=== PATIENT | female | born 1960 | race Caucasian/White ===

== ENCOUNTER 2017-04-26 09:16 | Day surgery (SDC) | payer BC ==
[2017-04-25 11:04] VITALS: BMI 27.8
[~2017-04-26 09:16] MED LIST: LACTATED RINGERS 1,000 ML IV SCH; LIDOCAINE 1% 20 ML VIAL (10MG/ML) FOR IV START INTRADERMA PRN
[2017-04-26 10:16] VITALS: RESP 16; TEMP 98.2
[2017-04-26] MEDS ORDERED: PROPOFOL 10 MG/ML 20 ML VIAL IV ONE (10:24)
--- NOTE | 2017-04-26 10:45 | P.PCN ---
Date of Procedure: 04/26/17 Preoperative Diagnosis: Postoperative Diagnosis: Procedure(s) Performed: Implants: BRIEF HISTORY: Patient is a 56-year-old pleasant white female, scheduled for an elective colonoscopy as a part of screening for colorectal neoplasia. She has family history of colon cancer diagnosed in her first cousin at age 65. PROCEDURE PERFORMED: Colonoscopy. PREOPERATIVE DIAGNOSIS: Screening for colon cancer. IV sedation per Anesthesia. PROCEDURE: After informed consent was obtained, the patient, was brought into the endoscopy unit. IV sedation was administered by Anesthesia under continuous monitoring. Digital rectal examination was normal. Initially the Olympus CF- 160 flexible video colonoscope was then inserted in the rectum, gradually advanced into the cecum without any difficulty. Careful examination was performed as the scope was gradually being withdrawn. Ileocecal valve and the appendiceal orifice were visualized and appeared normal. Prep was excellent. Mucosa of the cecum, ascending colon, transverse colon, descending colon, sigmoid colon, and rectum appeared normal. Retroflexion was performed in the rectum and no lesions were seen. The patient tolerated the procedure well. IMPRESSION: Normal-appearing colon from rectum to cecum with no evidence of colorectal neoplasia. RECOMMENDATIONS: Findings of this examination were discussed with the patient as well as her family. She was advised to have a repeat screening colonoscopy in 5 years because of the family history of colon cancer. Indications for Procedure: Operative Findings: Description of Procedure:
[2017-04-26 11:07] VITALS: BP 133/76; PULSE 58
== END 2017-04-26 11:26 | disposition home or self-care (01) ==
LOC: ORWHC2ENDO 09:16
PROVIDERS: ATTEND Internal Medicine Gastroenterology
DX: Z12.11 Encounter for screening for malignant neoplasm of colon (principal); Z80.0 Family history of malignant neoplasm of digestive organs; K21.9 Gastro-esophageal reflux disease without esophagitis; E07.9 Disorder of thyroid, unspecified; Z79.899 Other long term (current) drug therapy; Z86.73 Personal history of transient ischemic attack (TIA), and cerebral infarction without residual deficits
CPT/HCPCS: J2704; G0105

== ENCOUNTER → 2017-06-18 | Outpatient (CLI) | payer BC ==
--- NOTE | 2017-06-19 06:19 | PN ---
PROGRESS NOTE FROM SLEEP CENTER This 56-year-old female patient diagnosed having a mild obstructive sleep apnea with an AHI of 8.2. Currently, the patient is on CPAP with a pressure of 7 cm of water. She is doing well while on treatment. Despite the mild nature of her obstructive sleep apnea, the patient is responding to her treatment. She is waking up much more alert and awake during the day. This weekend she is going to [place] and I advised her to take her machine with her. She is going to attend her sister's wedding. Her weight is stable. Her CPAP use for more than 4 hours is at 87%. The average CPAP use is 5 hour sand 19 minutes. Her AHI is less than 5 and no leaks around her nasal pillow which is an AirFit P10 extra small. BP 140/80, pulse 72, respirations 16, temperature 97.3 and saturation 98% on room air.Weight is 178. GENERAL APPEARANCE: Calm, comfortable. HEENT: Negative for JVD. There is no goiter or neck masses. LUNGS: Clear to auscultation. HEART: Sounds regular rate and rhythm. Normal S1, S2. ABDOMEN: Soft, nontender. No organomegaly. EXTREMITIES: No edema, no cyanosis or clubbing. IMPRESSION: 1. Obstructive sleep apnea, mild with an AHI of 8.2, currently on CPAP at a pressure of 7. 2. Hypersomnia, improved. 3. Periodic limb movements. 4. Snoring, recovered. 5. Bipolar disorder. 6. Hypothyroidism. 7. Stress urinary incontinence. 8. Gastroesophageal reflux disease. 9. Chronic fatigue and tiredness and sleepiness improved. PLAN: 1. Continue CPAP at the same level of pressure. 2. Encourage weight loss. 3. Recommend using CPAP every night. 4. See me back in a year's time, earlier if needed. She is quite compliant to her treatment for the time being. No other adjustments from my standpoint for today. SHEFALID
== END ==
LOC: SLEEP 16:27
PROVIDERS: ATTEND Internal Medicine Critical Care Medicine
DX: G47.33 Obstructive sleep apnea (adult) (pediatric) (principal); G47.10 Hypersomnia, unspecified; G47.61 Periodic limb movement disorder; E03.9 Hypothyroidism, unspecified; K21.9 Gastro-esophageal reflux disease without esophagitis; R53.82 Chronic fatigue, unspecified; N39.3 Stress incontinence (female) (male); F31.9 Bipolar disorder, unspecified

== ENCOUNTER → 2018-02-26 | Outpatient (CLI) | payer BC ==
[2018-02-26 11:55] LABS: HCT 39.4 % (34.0-46.0); HGB 13.1 gm/dL (11.4-16.0); MCH 30.7 pg (25.0-35.0); MCHC 33.2 g/dL (31.0-37.0); MCV 92.6 fL (80.0-100.0); Mean Platelet Volume 6.7; Platelet Count 303 k/uL (150-450); RBC 4.25 m/uL (3.80-5.40); RDW 12.1 % (11.5-15.5); WBC 5.6 k/uL (3.8-10.6)
[2018-02-26 12:06] LABS: Albumin 4.4 g/dL (3.5-5.0); Bilirubin, Delta 0.3 mg/dL (0.0-0.2); Total Bilirubin 0.3 mg/dL (0.2-1.3)
[2018-02-26 12:49] LABS: Basophils # (M) 0.11 k/uL (0-0.2); Eosinophils # (M) 0.17 k/uL (0-0.7); Lymphocytes # (M) 2.18 k/uL (1.0-4.8); Monocytes # (M) 0.22 k/uL (0-1.0); Neutrophils # (M) 2.91 k/uL (1.3-7.7); Neutrophils % (M) 52 %; Nucleated Red Blood Cells 0 /100 WBC (0-0); Total Cells Counted 100
[2018-02-26 12:50] LABS: Poikilocytosis (M) Present
[2018-02-26 18:43] LABS: Hemoglobin A1C 5.2 % (4.0-6.0)
== END | disposition home or self-care (01) ==
LOC: LABWHC1 11:20
DX: Z51.81 Encounter for therapeutic drug level monitoring (principal); Z79.899 Other long term (current) drug therapy
CPT/HCPCS: 36415; 80061; 80076; 82947; 83036; 84146; 84443; 85027

== ENCOUNTER → 2018-06-25 | Outpatient (CLI) | payer BC ==
--- NOTE | 2018-06-25 13:57 | MM ---
Reason for exam: screening (asymptomatic). Last mammogram was performed 4 years and 2 months ago. History: Family history of breast cancer in paternal cousin at age 60. Benign ultrasound-guided core biopsy of the right breast, December 02, 2003. Core biopsy of the right breast. Physical Findings: A clinical breast exam by your physician is recommended on an annual basis and results should be correlated with mammographic findings. MG 3D Screening Mammo W/Cad Bilateral CC and MLO view(s) were taken. Prior study comparison: April 19, 2014, bilateral MG screening mammo w CAD. April 08, 2013, bilateral digital screening mammo w/CAD. There are scattered fibroglandular densities. Previous mammotome biopsy in the right breast. There is no discrete abnormality. Benign appearing bilateral axillary lymph nodes redemonstrated. ASSESSMENT: Benign, BI-RAD 2 RECOMMENDATION: Routine screening mammogram of both breasts in 1 year.
--- NOTE | 2018-06-25 17:19 | BD ---
EXAMINATION TYPE: Axial Bone Density DATE OF EXAM: 06/25/2018 COMPARISON: NONE CLINICAL HISTORY: 57-year-old female screening for osteoporosis Height: 5'7 Weight: 181 FRAX RISK QUESTIONS: History of Fracture in Adulthood: y Secondary Osteoporosis: 3. Menopause before 45: y RISK FACTORS HISTORY OF: Diet low in dairy products/other sources of calcium: y Postmenopausal woman: y MEDICATIONS: Thyroid Medications: Which medication: Synthroid How Lon years Additional Medications: depression Additional History: EXAM MEASUREMENTS: Bone mineral densitometry was performed using the [employer] System. Bone mineral density as measured about the Lumbar spine is: ----- L1-L4(G/cm2): 1.077 T Score Values are as follows: ----- L2: -1.2 ----- L3: -0.6 ----- L4: -0.6 ----- L1-L4: -0.9 Bone mineral density about the R hip (g/cm2): 0.986 Bone mineral density about the L hip (g/cm2): 0.968 T Score values are as follows: -----R Neck: -0.4 -----L Neck: -0.5 -----R Total: 0.4 -----L Total: 0.4 IMPRESSION: Normal (Values between +1 and -1 indicate normal bone mass). Consider repeating this study in 5 year s or sooner if there is some new clinical indication. NOTE: T-SCORE=SD OF THE YOUNG ADULT MEAN.
== END | disposition home or self-care (01) ==
LOC: RADMAMWWP 07:19
PROVIDERS: ATTEND Family Medicine
DX: Z12.31 Encounter for screening mammogram for malignant neoplasm of breast (principal); Z13.820 Encounter for screening for osteoporosis
CPT/HCPCS: 77063; 77067; 77080

== ENCOUNTER → 2018-08-20 | Outpatient (CLI) | payer BC ==
[2018-08-20 10:36] LABS: Basophils % (A) 0 %; Eosinophils # (A) 0.1 k/uL (0-0.7); Eosinophils % (A) 2 %; HCT 38.9 % (34.0-46.0); HGB 12.9 gm/dL (11.4-16.0); Lymphocytes # (A) 1.2 k/uL (1.0-4.8); Lymphocytes % (A) 27 %; MCH 31.3 pg (25.0-35.0); MCHC 33.2 g/dL (31.0-37.0); MCV 94.1 fL (80.0-100.0); Mean Platelet Volume 6.5; Monocytes # (A) 0.3 k/uL (0-1.0); Monocytes % (A) 6 %; Neutrophils # (A) 2.7 k/uL (1.3-7.7); Neutrophils % (A) 62 %; Platelet Count 268 k/uL (150-450); RBC 4.14 m/uL (3.80-5.40); WBC 4.4 k/uL (3.8-10.6)
[2018-08-20 12:33] LABS: ALT 15 U/L (9-52); AST 19 U/L (14-36); Albumin 4.2 g/dL (3.5-5.0); Alkaline Phosphatase 62 U/L (38-126); Anion Gap 6 mmol/L; Bilirubin, Delta 0.3 mg/dL (0.0-0.2); Bilirubin,Unconjugated 0.1 mg/dL (0.0-1.1); Blood Urea Nitrogen 13 mg/dL (7-17); Calcium 9.7 mg/dL (8.4-10.2); Carbon Dioxide 30 mmol/L (22-30); Chloride 105 mmol/L (98-107); Cholesterol 194 mg/dL (<200); Glucose 85 mg/dL (74-99); HDL Cholesterol 66 mg/dL (40-60); LDL Cholesterol,Calculated 117 mg/dL (0-99); Potassium 4.4 mmol/L (3.5-5.1); Sodium 141 mmol/L (137-145); Total Bilirubin 0.4 mg/dL (0.2-1.3); Triglycerides 57 mg/dL (<150)
[2018-08-20 12:49] LABS: T4, Free (Free Thyroxine) 0.84 ng/dL (0.78-2.19)
[2018-08-20 19:11] LABS: Hemoglobin A1C 5.1 % (4.0-6.0)
== END | disposition home or self-care (01) ==
LOC: LABWHC1 09:20
DX: Z51.81 Encounter for therapeutic drug level monitoring (principal); Z79.899 Other long term (current) drug therapy
CPT/HCPCS: 36415; 80053; 80061; 82248; 83036; 84146; 84439; 84443; 84481; 85025

== ENCOUNTER → 2019-07-15 | Outpatient (CLI) | payer BC ==
--- NOTE | 2019-07-16 12:05 | MM ---
Reason for exam: screening (asymptomatic). Last mammogram was performed 1 year and 1 month ago. History: Family history of breast cancer in paternal cousin at age 60. Benign ultrasound-guided core biopsy of the right breast, December 02, 2003. Core biopsy of the right breast. Physical Findings: A clinical breast exam by your physician is recommended on an annual basis and results should be correlated with mammographic findings. MG 3D Screening Mammo W/Cad Bilateral CC and MLO view(s) were taken. Prior study comparison: June 25, 2018, bilateral MG 3d screening mammo w/cad. April 19, 2014, bilateral MG screening mammo w CAD. There are scattered fibroglandular densities. No suspicious abnormality. Right biopsy marker noted. No significant changes when compared with prior studies. ASSESSMENT: Negative, BI-RAD 1 RECOMMENDATION: Routine screening mammogram of both breasts in 1 year.
== END | disposition home or self-care (01) ==
LOC: RADMAMWWP 13:19
PROVIDERS: ATTEND Family Medicine
DX: Z12.31 Encounter for screening mammogram for malignant neoplasm of breast (principal)
CPT/HCPCS: 77063; 77067

== ENCOUNTER → 2019-11-09 | Outpatient (CLI) | payer BC ==
--- NOTE | 2019-11-09 16:10 | US ---
EXAMINATION TYPE: US venous doppler duplex LE BI DATE OF EXAM: 11/09/2019 2:54 PM COMPARISON: NONE CLINICAL HISTORY: 58-year-old female I83.93 ASYMPTOMATIC VARICOSE VEINS. Lump on and off for 6 months left leg SIDE PERFORMED: Bilateral TECHNIQUE: The lower extremity deep venous system is examined utilizing real time linear array sonog apolinar with graded compression, doppler sonography and color-flow sonography. FINDINGS: VESSELS IMAGED: External Iliac Vein (EIV) Common Femoral Vein Deep Femoral Vein Greater Saphenous Vein * Femoral Vein Popliteal Vein Small Saphenous Vein * Proximal Calf Veins (* superficial vessels) Right Leg: Negative for DVT Left Leg: Negative for DVT Napoles's cyst in left pop fossa measuring 5.4 x 3.0 x 6.4 cm IMPRESSION: 1. No evidence for DVT within the bilateral lower extremities imaged from the groin to the upper calf . 2. Moderate-sized 6.4 x 5.4 x 3.0 cm left-sided Napoles cyst.
== END | disposition home or self-care (01) ==
LOC: RADUSWWP 14:00
PROVIDERS: ATTEND Family Medicine
DX: M71.22 Synovial cyst of popliteal space [Baker], left knee (principal)
CPT/HCPCS: 93970

== ENCOUNTER → 2020-09-02 | Outpatient (CLI) | payer BC ==
--- NOTE | 2020-09-06 10:59 | MM ---
Reason for exam: screening (asymptomatic). Last mammogram was performed 1 year and 2 months ago. History: Family history of breast cancer in paternal cousin at age 60. Benign ultrasound-guided core biopsy of the right breast, December 02, 2003. Core biopsy of the right breast. Physical Findings: A clinical breast exam by your physician is recommended on an annual basis and results should be correlated with mammographic findings. MG 3D Screening Mammo W/Cad Bilateral CC and MLO view(s) were taken. Prior study comparison: July 15, 2019, bilateral MG 3d screening mammo w/cad. June 25, 2018, bilateral MG 3d screening mammo w/cad. There are scattered fibroglandular densities. Previous mammotome biopsy in the right breast. No significant changes when compared with prior studies. ASSESSMENT: Negative, BI-RAD 1 RECOMMENDATION: Routine screening mammogram of both breasts in 1 year.
== END | disposition home or self-care (01) ==
LOC: RADMAMWWP 09:35
PROVIDERS: ATTEND Family Medicine
DX: Z12.31 Encounter for screening mammogram for malignant neoplasm of breast (principal)
CPT/HCPCS: 77063; 77067

== ENCOUNTER → 2021-11-02 | Outpatient (CLI) | payer BC ==
--- NOTE | 2021-11-03 12:55 | MM ---
Reason for exam: screening (asymptomatic). Last mammogram was performed 1 year and 2 months ago. History: Family history of breast cancer in paternal cousin at age 60. Benign ultrasound-guided core biopsy of the right breast, December 02, 2003. Core biopsy of the right breast. Physical Findings: A clinical breast exam by your physician is recommended on an annual basis and results should be correlated with mammographic findings. MG 3D Screening Mammo W/Cad Bilateral CC and MLO view(s) were taken. Prior study comparison: September 02, 2020, bilateral MG 3d screening mammo w/cad. July 15, 2019, bilateral MG 3d screening mammo w/cad. There are scattered fibroglandular densities. Previous mammotome biopsy in the right breast. There is no discrete abnormality. ASSESSMENT: Benign, BI-RAD 2 RECOMMENDATION: Routine screening mammogram of both breasts in 1 year.
== END | disposition home or self-care (01) ==
LOC: RADMAMWWP 14:54
PROVIDERS: ATTEND Family Medicine
DX: Z12.31 Encounter for screening mammogram for malignant neoplasm of breast (principal)
CPT/HCPCS: 77063; 77067

== ENCOUNTER → 2022-02-28 | Outpatient (CLI) | payer BC ==
--- NOTE | 2022-02-28 17:07 | BD ---
EXAMINATION TYPE: Axial Bone Density DATE OF EXAM: 02/28/2022 COMPARISON: NONE CLINICAL HISTORY: 61 year old Female. ICD-10 CODE: M85.80 OTH DISRD OF BONE DENSITY AND STRUCTURE, UN Height: 67 Weight: 173.0 FRAX RISK QUESTIONS: Alcohol (3 or more units per day): no Family History (Parent hip fracture): no Glucocorticoids (More than 3mos): no (Ex: prednisone, prednisolone, methylprednisolone, dexamethasone, and hydrocortisone). History of Fracture in Adulthood: no Secondary Osteoporosis: 1. Type 1 Diabetes: no 2. Hyperthyroidism: no 3. Menopause before 45: yes 4. Malnutrition: no 5. Chronic liver disease: no Rheumatoid Arthritis: no Current Tobacco Use: no RISK FACTORS HISTORY OF: Surgery to Spine/Hip(right/left)/Wrist (right/left): no Family History of Osteoporosis: no Active: yes Diet low in dairy products/other sources of calcium: yes Postmenopausal woman: yes Lost more than 2 inches in height since high school: no Frequent falls: yes MEDICATIONS: Thyroid Medications: synthroid How Lon years Additional History: EXAM MEASUREMENTS: Bone mineral densitometry was performed using the [employer] System. Bone mineral density as measured about the Lumbar spine is: ----- L1-L4(G/cm2): 1.104 T Score Values are as follows: ----- L1: -1.3 ----- L2: -0.5 ----- L3: -0.6 ----- L4: -0.3 ----- L1-L4: -0.6 Bone mineral density has: increased 3.1 % since study of: 06.25.2018 Bone mineral density about the R hip (g/cm2): 0.981 Bone mineral density about the L hip (g/cm2): 0.921 T Score values are as follows: -----R Neck: -0.4 -----L Neck: -0.8 -----R Total: 0.3 -----L Total: 0.0 Bone mineral density has: decreased -3.3 % since study of: 06.25.2018 FRAX%s: The graph provided illustrates a 7.1% chance for a major osteoporotic fx and a 0.4% chance fo r the hips probability for fx in 10 years time. IMPRESSION: Normal (Values between +1 and -1 indicate normal bone mass). Consider repeating this study in 5 year s or sooner if there is some new clinical indication. NOTE: T-SCORE=SD OF THE YOUNG ADULT MEAN.
== END | disposition home or self-care (01) ==
LOC: RADBDWWP 07:22
PROVIDERS: ATTEND Family Medicine
DX: Z12.31 Encounter for screening mammogram for malignant neoplasm of breast (principal); M85.80 Other specified disorders of bone density and structure, unspecified site
CPT/HCPCS: 77080

== ENCOUNTER 2022-05-16 08:25 | Day surgery (SDC) | payer BC ==
[2022-05-14 13:04] VITALS: BMI 26.6
[~2022-05-16 08:25] MED LIST changes: +LIDOCAINE 1% (10MG/ML) FOR IV START INTRADERMA PRN; -LIDOCAINE 1% 20 ML VIAL (10MG/ML) FOR IV START INTRADERMA PRN
[2022-05-16 08:56] VITALS: TEMP 97.8
[2022-05-16] MEDS ORDERED: LIDOCAINE 2% INJ 20 MG/ML (2 ML VIAL) ONE (09:36)
[2022-05-16] MEDS ORDERED: PROPOFOL 10 MG/ML 20 ML VIAL IV ONE (09:36)
--- NOTE | 2022-05-16 10:00 | P.PCN ---
Date of Procedure: 05/16/22 Procedure(s) Performed: BRIEF HISTORY: Patient is a 61-year-old pleasant white female scheduled for an elective colonoscopy as a part of screening for colon cancer and family history of colon cancer. PROCEDURE PERFORMED: Colonoscopy. PREOPERATIVE DIAGNOSIS: Screening for colon cancer and family history of colon cancer IV sedation per Anesthesia. PROCEDURE: After informed consent was obtained, the patient, was brought into the endoscopy unit. IV sedation was administered by Anesthesia under continuous monitoring. Digital rectal examination was normal. Initially the Olympus CF-160 flexible video colonoscope was then inserted in the rectum, gradually advanced into the cecum without any difficulty. Careful examination was performed as the scope was gradually being withdrawn. Ileocecal valve and the appendiceal orifice were visualized and appeared normal. Prep was excellent. Mucosa of the cecum, ascending colon, transverse colon, descending colon, sigmoid colon, and rectum appeared normal. Scattered sigmoid diverticulosis. Retroflexion was performed in the rectum and no lesions were seen. The patient tolerated the procedure well. IMPRESSION: Normal-appearing colon from rectum to cecum with no evidence of colorectal neoplasia . Scattered sigmoid diverticulosis RECOMMENDATIONS: Findings of this examination were discussed with the patient as well as her family. She was advised to have a repeat screening colonoscopy in 5 years from now because of the family history of colon cancer.
[2022-05-16 10:05] VITALS: RESP 16
[2022-05-16 10:20] VITALS: BP 140/71; PULSE 61
== END 2022-05-16 10:34 | disposition home or self-care (01) ==
LOC: ORWHC2ENDO 08:25
PROVIDERS: ATTEND Internal Medicine Gastroenterology
DX: Z12.11 Encounter for screening for malignant neoplasm of colon (principal); K57.30 Diverticulosis of large intestine without perforation or abscess without bleeding; Z80.0 Family history of malignant neoplasm of digestive organs; E78.5 Hyperlipidemia, unspecified; E07.9 Disorder of thyroid, unspecified; F32.A Depression, unspecified; K21.9 Gastro-esophageal reflux disease without esophagitis; Z86.73 Personal history of transient ischemic attack (TIA), and cerebral infarction without residual deficits; Z79.899 Other long term (current) drug therapy; Z79.82 Long term (current) use of aspirin; Z79.890 Hormone replacement therapy
CPT/HCPCS: J2704; J2001; G0105; 45378

== ENCOUNTER → 2022-11-01 | Outpatient (CLI) | payer BC | END | disposition home or self-care (01) | LOC: RADMAMWWP 09:16 | PROVIDERS: ATTEND Family Medicine | DX: Z53.9 Procedure and treatment not carried out, unspecified reason (principal) ==

== ENCOUNTER → 2022-11-05 | Outpatient (CLI) | payer BC ==
--- NOTE | 2022-11-05 11:39 | MM ---
Reason for Exam: Screening (asymptomatic). Last screening mammogram was performed 12 month(s) ago. Patient History: Menarche at age 13. First Full-Term at age 22. Hysterectomy at age 36. Core Biopsy on the Right side. 12/02/2003, Benign Ultrasound-Guided Core Biopsy on the right side. Paternal cousin had breast cancer, age 60. Paternal cousin had ovarian cancer, age 65. Risk Values: Alicia 5 year model risk: 2.0%. NCI Lifetime model risk: 9.5%. Prior Study Comparison: 07/15/2019 Bilateral Screening Mammogram, [facility]. 09/02/2020 Bilateral Screening Mammogram, [facility]. 11/02/2021 Bilateral Screening Mammogram, [facility]. Tissue Density: There are scattered fibroglandular densities. Findings: Analyzed By CAD. Mammotome biopsy clip in the right breast is redemonstrated. Benign-appearing right axillary lymph nodes are seen. There is no suspicious new group of microcalcifications or new suspicious mass in either breast. Overall Assessment: Benign, BI-RAD 2 Management: Screening Mammogram of both breasts in 1 year. A clinical breast exam by your physician is recommended on an annual basis and results should be correlated with mammographic findings. Electronically signed and approved by: Gael Phillips M.D.
== END | disposition home or self-care (01) ==
LOC: RADMAMWWP 10:52
PROVIDERS: ATTEND Family Medicine
DX: Z12.31 Encounter for screening mammogram for malignant neoplasm of breast (principal); Z80.3 Family history of malignant neoplasm of breast; Z98.890 Other specified postprocedural states
CPT/HCPCS: 77063; 77067

== ENCOUNTER → 2023-10-16 | Outpatient (CLI) | payer BC ==
--- NOTE | 2023-10-16 18:55 | CT ---
EXAMINATION TYPE: CT chest w con CT DLP: 347.9 mGycm, Automated exposure control for dose reduction was used. DATE OF EXAM: 10/16/2023 6:46 PM COMPARISON: Chest radiograph 10/01/2023. CLINICAL INDICATION:Female, 62 years old with history of R05.3 CHRONIC COUGH; PHH, Cough x 1 month TECHNIQUE: Multiple axial images were obtained through the chest. Sagittal and coronal reformats were created for review. Contrast used:100 cc mL of Isovue 300 with IV Contrast (None if empty) Oral contrast used: (None if empty) FINDINGS: LUNGS/ PLEURA: No focal consolidation, pneumothorax or pleural effusion. AIRWAY: No bronchial wall thickening bronchial wall dilation. HEART: Size within normal limits. MEDIASTINUM: No gross evidence of adenopathy. VASCULATURE: No aortic aneurysm. MUSCULOSKELETAL: No acute osseous abnormalities, mild pectus excavatum. SOFT TISSUES/LYMPH NODES: Unremarkable. LOWER NECK: No significant findings. UPPER ABDOMEN: Small hiatal hernia is present. IMPRESSION: Small hiatal hernia correlate for gastroesophageal reflux. Otherwise no finding to correlate with pat ient's symptoms.
== END | disposition home or self-care (01) ==
LOC: RADCTMAIN 18:23
PROVIDERS: ATTEND Internal Medicine
DX: K44.9 Diaphragmatic hernia without obstruction or gangrene (principal); R05.3 Chronic cough
CPT/HCPCS: 71260; Q9967

== ENCOUNTER 2023-10-25 11:12 | Day surgery (SDC) | payer BC ==
[~2023-10-25 11:12] MED LIST changes: -LIDOCAINE 1% (10MG/ML) FOR IV START INTRADERMA PRN
[2023-10-25] MEDS ORDERED: ONDANSETRON 4 MG/2 ML VIAL ONE (11:47)
[2023-10-25 11:51] VITALS: TEMP 97.4
[2023-10-25] MEDS ORDERED: ONDANSETRON 4 MG/2 ML VIAL IVP ONE (11:58)
[2023-10-25 12:01] LABS: Glucose,Whole Blood 93 mg/dL (70-110)
[2023-10-25] MEDS ORDERED: PROPOFOL 10 MG/ML 20 ML VIAL IV ONE (12:09)
[2023-10-25] MEDS ORDERED: KETAMINE HCL IN 0.9 % NACL 50 MG/5 ML SYRINGE ONE (12:09)
[2023-10-25] MEDS ORDERED: LIDOCAINE 1% INJ 10MG/ML (20 ML MDV) ONE (12:09)
[2023-10-25] MEDS ORDERED: GLYCOPYRROLATE 0.2 MG/ML 2 ML VIAL ONE (12:09)
[2023-10-25] MEDS ORDERED: MIDAZOLAM 2 MG/2 ML VIAL ONE (12:09)
[2023-10-25] MEDS ORDERED: fentaNYL (PF) 50 MCG/ML 2 ML AMP ONE (12:09)
[2023-10-25] MEDS ORDERED: LIDOCAINE 2% INJ 20 MG/ML INTRATRACH ONE (12:12)
[2023-10-25 12:40] VITALS: BP 139/88; PULSE 79; RESP 16
--- NOTE | 2023-10-25 13:10 | OP ---
OPERATIVE REPORT DATE OF SERVICE : PROCEDURE PERFORMED: Bronchoscopy and BAL of the right middle lobe. PREOPERATIVE DIAGNOSIS: Unexplained chronic cough. POSTOPERATIVE DIAGNOSIS: Unexplained chronic cough. ANESTHESIA USED: IV conscious sedation. PROCEDURE: The patient was brought in to the bronchoscopy suite, she was prepared according to the bronchoscopy protocol. The patient was placed in a supine position, O2 was applied via Ventimask. A bite block was applied. After adequate IV conscious sedation, and while we were monitoring her O2 saturation continuously, blood pressure was intermittently monitored, and cardiac rhythm was continuously monitored. The bronchoscope was inserted through the bite block down to the area of the vocal cords. The vocal cords were noted to be normal, and no evidence of any lesions noted on the vocal cords. Lidocaine was applied over the vocal cords, and the bronchoscope was advanced further down. Thorough examination was done of the trachea, manjit, right upper lobe, right middle lobe, right lower lobe and different segments were visualized. Also examination of the left upper lobe, lingula, and left lower lobe was done. There was no evidence of any endobronchial lesions to speak of. There was no evidence of any purulent secretions noted in the airways. Then the bronchoscope was wedged in the right middle lobe medial segment, and a bronchoalveolar lavage was done of the right middle lobe. Fluid obtained was sent for cultures and sent for total cell count and differential. Procedure was well tolerated, no complications, findings were discussed with the after the procedure, and again the findings are basically nondiagnostic. Procedure was well tolerated and no complications. MMODL / IJN: [id number] /
[2023-10-25 21:45] LABS: Appearance,BF Slightly Hazy (Clear); RBC, Body Fluid 5 /UL (0-2000)
[2023-10-28 09:23] LABS: Nucleated Cells, Body Fluid 70 /UL
== END 2023-10-25 13:09 | disposition home or self-care (01) ==
LOC: ORWHC2ENDO 11:12
PROVIDERS: ATTEND Internal Medicine
DX: J45.991 Cough variant asthma (principal); I10 Essential (primary) hypertension; E78.5 Hyperlipidemia, unspecified; E03.9 Hypothyroidism, unspecified; G47.33 Obstructive sleep apnea (adult) (pediatric); F31.9 Bipolar disorder, unspecified; I63.9 Cerebral infarction, unspecified; K21.9 Gastro-esophageal reflux disease without esophagitis; Z79.51 Long term (current) use of inhaled steroids; Z79.82 Long term (current) use of aspirin; Z79.890 Hormone replacement therapy; Z79.899 Other long term (current) drug therapy
CPT/HCPCS: 89050; 87070; 87205; 87116; 87102; 87206; 31624; J2001 ×2; J2250; J2405; J3010; J2704

== ENCOUNTER → 2023-11-07 | Outpatient (CLI) | payer BC ==
--- NOTE | 2023-11-12 19:18 | MM ---
Reason for Exam: Screening (asymptomatic). Last screening mammogram was performed 12 month(s) ago. Patient History: Menarche at age 13. First Full-Term at age 22. Hysterectomy at age 36. Patient has history of breast feeding. Core Biopsy on the Right side. 12/02/2003, Benign Ultrasound-Guided Core Biopsy on the right side. Paternal cousin had breast cancer, age 60. Paternal cousin had ovarian cancer, age 65. Risk Values: Alicia 5 year model risk: 2.1%. NCI Lifetime model risk: 9.2%. Prior Study Comparison: 06/25/2018 Bilateral Screening Mammogram, [facility]. 07/15/2019 Bilateral Screening Mammogram, [facility]. 09/02/2020 Bilateral Screening Mammogram, [facility]. 11/02/2021 Bilateral Screening Mammogram, [facility]. 11/05/2022 Bilateral MG 3D screening mammo w/cad, [facility]. Tissue Density: There are scattered fibroglandular densities. Findings: Analyzed By CAD. Microclip right breast from prior biopsy. Similar slight nipple retraction especially on the right. There is no suspicious group of microcalcifications or new suspicious mass in either breast. Overall Assessment: Benign, BI-RAD 2 Management: Screening Mammogram of both breasts in 1 year. . Patient should continue monthly self-breast exams. A clinical breast exam by your physician is recommended on an annual basis. This exam should not preclude additional follow-up of suspicious palpable abnormalities. Note on Alicia scores and lifetime risk: 1. A Alicia score greater than 3% is considered moderate risk. If this is the case, consider specialist referral to assess eligibility for a risk reducing agent. 2. If overall lifetime risk for the development of breast cancer is 20% or higher, the patient may qualify for future screening with alternating mammogram and breast MRI. Electronically signed and approved by: Sandra Seay M.D. Radiologist
== END | disposition home or self-care (01) ==
LOC: RADMAMWWP 07:33
PROVIDERS: ATTEND Family Medicine
DX: Z12.31 Encounter for screening mammogram for malignant neoplasm of breast (principal); Z80.3 Family history of malignant neoplasm of breast
CPT/HCPCS: 77063; 77067

== ENCOUNTER → 2024-04-08 | Outpatient (CLI) | payer BC ==
[2024-04-08 12:08] LABS: Basophils # (A) 0.1 k/uL (0-0.2); Basophils % (A) 1 %; Eosinophils # (A) 0.2 k/uL (0-0.7); Eosinophils % (A) 4 %; HCT 41.2 % (34.0-46.0); HGB 13.7 gm/dL (11.4-16.0); Lymphocytes # (A) 1.3 k/uL (1.0-4.8); Lymphocytes % (A) 24 %; MCH 31.3 pg (25.0-35.0); MCHC 33.3 g/dL (31.0-37.0); MCV 94.1 fL (80.0-100.0); Monocytes # (A) 0.3 k/uL (0-1.0); Monocytes % (A) 6 %; Neutrophils # (A) 3.3 k/uL (1.3-7.7); Neutrophils % (A) 63 %; Platelet Count 314 k/uL (150-450); RBC 4.38 m/uL (3.80-5.40); RDW 12.2 % (11.5-15.5); WBC 5.3 k/uL (3.8-10.6)
[2024-04-08 12:12] LABS: Total Eosinophil Count 230 #EOS/uL (150-300)
[2024-04-08 20:48] LABS: Alternaria alternata IgE <0.10 kU/L; Aspergillus fumagatus IgE <0.10 kU/L; Birch IgE 0.58 kU/L; Cat Epith & Dander IgE <0.10 kU/L; Cladosporian herbarum IgE <0.10 kU/L; Cockroach IgE <0.10 kU/L; Dermato. farinae IgE <0.10 kU/L; Dog Dander IgE <0.10 kU/L; Elm IgE <0.10 kU/L; Maple (Box Elder) IgE <0.10 kU/L; Oak IgE <0.10 kU/L; Ragweed,Common IgE <0.10 kU/L; Red Top (Bentgrass) IgE <0.10 kU/L
== END | disposition home or self-care (01) ==
LOC: LABWHC1 11:43
PROVIDERS: ATTEND Internal Medicine
DX: R05.3 Chronic cough (principal)
CPT/HCPCS: 36415; 82785; 85008; 85025; 86003

== ENCOUNTER → 2024-11-04 | Day surgery (SDC) | payer BC ==
[~2024-11-04] MED LIST changes: +ALPRAZolam 0.25 MG TAB PO PRN; +ALPRAZolam 0.5 MG TAB PO PRN; +ASPIRIN 81 MG PO SCH; +ATORVASTATIN 80 MG TAB PO SCH; +ATROPINE SULFATE 0.1 MG/ML 10ML SYRINGE IV PRN; +GABAPENTIN 400 MG CAP PO SCH; +ISOSORBIDE MONONITRATE ER 30 MG TAB.ER.24H PO SCH; -LACTATED RINGERS 1,000 ML IV SCH; +LEVOTHYROXINE 50 MCG TAB PO SCH; +MAG HYDROX/AL HYDROX/SIMETH 30 ML CUP PO PRN; +METOPROLOL TARTRATE 12.5 MG TAB PO SCH; +NITROGLYCERIN SL TABS 0.4 MG TAB SUBLINGUAL PRN; +RX INFO: IV CONTRAST WAS GIVEN 1 EACH MISC MISCELLANE PRN; +SODIUM CHLORIDE 0.9% 1,000 ML IV SCH; +TICAGRELOR 90 MG TAB PO SCH; +ZOLPIDEM 5 MG TAB PO PRN; +lamoTRIgine 100 MG TAB PO SCH
[2024-11-04] MEDS: IV FLUID CONTINUATION 1,000 ML IV ONE (06:50)
[2024-11-04] MEDS: SODIUM CHLORIDE 0.9% 1,000 ML in EMPTY BAG 1 BAG IV SCH (06:50)
[2024-11-04 07:24] VITALS: PULSE 64; RESP 16; TEMP 97.9
[2024-11-04] MEDS: HEPARIN SODIUM,PORCINE 10,000 UNIT in SODIUM CHLORIDE 0.9% 1,000 ML IRRIGATION ONE (07:32)
[2024-11-04] MEDS: HEPARIN SODIUM,PORCINE (1 ML) 2,500 UNIT in SODIUM CHLORIDE 0.9% 250 ML IRRIGATION ONE (07:33)
[2024-11-04] MEDS: fentaNYL (PF) 50 MCG/ML 2 ML AMP IVP ONE (07:47)
[2024-11-04] MEDS: LIDOCAINE 1% INJ 10MG/ML (20 ML MDV) SQ ONE (07:47)
[2024-11-04] MEDS: HEPARIN SODIUM 1,000 UN/ML (10ML VL) IV ONE (07:52)
[2024-11-04] MEDS: IOPAMIDOL-370 100ML BTL INJ ONE (07:57)
[2024-11-04] MEDS: ASPIRIN 325 MG TAB PO ONE (08:07)
--- NOTE | 2024-11-04 08:21 | P.CARDCATH ---
Date of Procedure: 11/04/24 Description of Procedure: Cardiac Catheterization: The patient is a 63-year-old female with a history of hyperlipidemia who has been complaining of exertional chest comfort and had an abnormal MPI. Her symptoms improved with nitroglycerin. Recommendations were made regarding cardiac catheterization, the risks and the complications were discussed with the patient who is in full understanding and agreement. Procedure Description: Patient was brought to medical laboratory manager in fasting semi-sedated state after receiving Fentanyl and Benadryl achieiving moderate conscious sedated state. Using Xylocaine Anesthesia and modified Seldinger technique, a 6-[place] sheath was introduced in the right radial artery . Subsequently, selective coronary angiography was performed using a 5-[place] 3.5 bend Keke catheter. Multiple views of the coronary artery including hemiaxial views were obtained. The 5 [place] pigtail catheter was used to cross the aortic valve and LVEDP was calculated. Following that, catheter and sheath were removed. Hemostasis was obtained with deployment of vascular band . There was no immediate complication. Patient was returned to room in stable condition. Of note, the patient received a total of 4500 units of intravenous heparin as well as intra-arterial verapamil. Findings: Fluoroscopy: Calcification in the proximal LAD was noted Left main: This is a short size vessel, bifurcating into LAD and left circumflex, left main has no obstructive disease LAD: This is a large size vessel, reaching to the apex with a wraparound apex segment giving rise to 2 diagonal branch of moderate caliber. The proximal LAD has a 20 to 30% eccentric lesion, the rest of the vessel has no high-grade s tenosis Left circumflex: This is a large codominant vessel giving rise to a large obtuse marginal branch the second obtuse marginal branch is small in caliber. The left circumflex and its branches have no obstructive disease RCA: This is a moderately sized codominant vessel giving rise to a small PDA, the RCA and its branches have no obstructive disease Left Ventriculogram: Not performed Hemodynamics: There was no gradient across the aortic valve, LVEDP was 10-14 mmHg Conclusion: 1. Calcified proximal LAD 2. Mild disease in the proximal LAD 3. No obstructive disease in the RCA and left circumflex 4. Codominant system Recommendations: The patient will continue on present therapy with the aggressive coronary risks modification initiated. The findings and the recommendations were discussed with the patient and the family and they were in full understanding and agreement. Duration of sedation is 10 minutes.
[2024-11-04 19:35] VITALS: BP 118/66
== END | disposition home or self-care (01) ==
LOC: CATHCVL 06:06
PROVIDERS: ATTEND Internal Medicine Interventional Cardiology
DX: I25.10 Atherosclerotic heart disease of native coronary artery without angina pectoris (principal)
CPT/HCPCS: 93458; J1644 ×3; J2003; J3010; Q9967

== ENCOUNTER → 2024-11-09 | Outpatient (CLI) | payer BC ==
--- NOTE | 2024-11-12 08:19 | MM ---
Reason for Exam: Screening (asymptomatic). Last screening mammogram was performed 12 month(s) ago. Patient History: Menarche at age 13. First Full-Term at age 22. Hysterectomy at age 36. Patient has history of breast feeding. Core Biopsy on the Right side. 12/02/2003, Benign Ultrasound-Guided Core Biopsy on the right side. Paternal cousin had breast cancer, age 60. Paternal cousin had ovarian cancer, age 65. Risk Values: Alicia 5 year model risk: 2.1%. NCI Lifetime model risk: 8.9%. Prior Study Comparison: 11/02/2021 Bilateral Screening Mammogram, [facility]. 11/05/2022 Bilateral MG 3D screening mammo w/cad, [facility]. 11/07/2023 Bilateral MG 3D screening mammo w/cad, [facility]. Tissue Density: The breasts are heterogeneously dense, which may obscure small masses. Findings: Analyzed By CAD. Microclip right breast from prior biopsy. Central asymmetric density right MLO view middle depth does not persist on 3-D images, compatible with superimposition shadow. There is no suspicious group of microcalcifications or new suspicious mass in either breast. Overall Assessment: Benign, BI-RAD 2 Management: Screening Mammogram of both breasts in 1 year. Patient should continue monthly self-breast exams. A clinical breast exam by your physician is recommended on an annual basis. This exam should not preclude additional follow-up of suspicious palpable abnormalities. Note on Alicia scores and lifetime risk: 1. A Alicia score greater than 3% is considered moderate risk. If this is the case, consider specialist referral to assess eligibility for a risk reducing agent. 2. If overall lifetime risk for the development of breast cancer is 20% or higher, the patient may qualify for future screening with alternating mammogram and breast MRI. [facility], , 11/12/2024 8:16 AM. Electronically signed and approved by: Sandra Seay M.D. Radiologist
== END | disposition home or self-care (01) ==
LOC: RADMAMWWP 08:07
PROVIDERS: ATTEND Family Medicine
DX: Z12.31 Encounter for screening mammogram for malignant neoplasm of breast (principal); Z80.3 Family history of malignant neoplasm of breast; R92.333 Mammographic heterogeneous density, bilateral breasts; Z98.82 Breast implant status
CPT/HCPCS: 77063; 77067